=== PATIENT | male | born 1995 | race Caucasian/White ===

== ENCOUNTER 2021-09-02 21:21 | Emergency (ER) | payer SELFPAY | END 2021-09-02 22:52 | LOC: CSHERS 21:21 | DX: Z53.21 Procedure and treatment not carried out due to patient leaving prior to being seen by health care provider (principal) ==

== ENCOUNTER 2022-11-08 19:55 | Emergency (ER) | payer OTHER, SELFPAY ==
[2022-11-08 21:01] LABS: SARS-CoV-2 NAA Rapid Test DETECTED (NotDetected)
[2022-11-08] MEDS ORDERED: Acetaminophen 500 MG TAB ONE (22:18)
== END 2022-11-08 23:05 | disposition home or self-care (01) ==
LOC: CSHERS 19:55
DX: U07.1 COVID-19 (principal); F17.210 Nicotine dependence, cigarettes, uncomplicated
CPT/HCPCS: 71045; U0002

== ENCOUNTER 2024-03-26 17:31 | Emergency (ER) | payer OTHER | END 2024-03-26 19:01 | LOC: CSHERS 17:31 | DX: Z53.21 Procedure and treatment not carried out due to patient leaving prior to being seen by health care provider (principal) ==